=== PATIENT | female | born 1975 | race Caucasian/White ===

== ENCOUNTER 2019-09-29 09:32 | Emergency (ER) | payer BC ==
[2019-09-29 10:54] VITALS: BP 139/71
--- NOTE | 2019-09-29 12:29 | UC ---
Hand/Wrist HPI - HPI Summary HPI Summary: Pt presents with c/o right thumb and wrist pain s/p slipping while moving a desk and falling from standing height and landing on bent knee and hyper extending right thumb. Pt reports sudden onset of pain after hearing "pop" when hyper extending thumb. Pt has not applie dice or taken and pain management medications. - History Of Current Complaint Chief Complaint: UCUpperExtremity Stated Complaint: RIGHT WRIST INJURY Time Seen by Provider: 09/29/19 11:35 Hx Obtained From: Patient Hx Last Menstrual Period: n/a - hysterectomy ?: No Onset/Duration: Sudden Onset, Still Present Severity Initially: Moderate Severity Currently: Moderate Pain Intensity: 6 Pain Scale Used: 0-10 Numeric Character Of Pain: Dull, Aching, Stiffness Aggravating Factor(s): Movement Alleviating Factor(s): Rest Associated Signs And Symptoms: Positive: Swelling Related History: Dominant Hand Right - Risk Factors Compartment Syndrome Risk Factors: Pain - Allergies/Home Medications Allergies/Adverse Reactions: Allergies Allergy/AdvReac Type Severity Reaction Status Date / Time No Known Allergies Allergy Verified 09/29/19 10:45 Home Medications: Home Medications ALPRAZolam [Alprazolam ER] 0.5 - 1 tab PO BEDTIME PRN 09/29/19 [History Confirmed 09/29/19] Acetaminophen [Tylenol] 1 tab PO ONCE 09/29/19 [History Confirmed 09/29/19] Citalopram TAB* [Celexa TAB*] 1 tab PO QPM 09/29/19 [History Confirmed 09/29/19] EPINEPHrine [Epipen] 1 dose INJ ONCE 09/29/19 [History Confirmed 09/29/19] hydrOXYzine HCL TAB* [Atarax TAB 50 MG *] 1 tab PO ONCE PRN 09/29/19 [History Confirmed 09/29/19] PMH/Surg Hx/FS Hx/Imm Hx Previously Healthy: Yes - Surgical History Surgical History: Yes Surgery Procedure, Year, and Place: Hysterectomy with bladder repair due to nicked bladder during hysterectomy, ; Bilateral Carpal Tunnel, 1999; Cholecystectomy, ; Appendectomy, . Gastirc bypass 2018 - Family History Known Family History: Positive: Cardiac Disease - Social History Occupation: Employed Full-time Lives: With Family Alcohol Use: None Substance Use Type: None Smoking Status (MU): Never Smoked Tobacco Have You Smoked in the Last Year: No - Immunization History Most Recent Influenza Vaccination: July 2017 Vaccination Up to Date: Yes Review of Systems All Other Systems Reviewed And Are Negative: Yes Constitutional: Positive: Negative Skin: Positive: Negative Eyes: Positive: Negative ENT: Positive: Negative Respiratory: Positive: Negative Cardiovascular: Positive: Negative Gastrointestinal: Positive: Negative Genitourinary: Positive: Negative Motor: Positive: Decreased ROM - c/o pain with ROM of right thumb Neurovascular: Positive: Negative Musculoskeletal: Positive: Arthralgia, Decreased ROM, Edema, Myalgia Neurological: Positive: Negative Psychological: Positive: Negative Is Patient Immunocompromised?: No Physical Exam Triage Information Reviewed: Yes Appearance: Pain Distress - with palpation and rom Vital Signs: Initial Vital Signs Temp 97.1 F 09/29/19 10:49 Pulse 53 09/29/19 10:49 Resp 16 09/29/19 10:49 BP 139/71 09/29/19 10:49 Pulse Ox 98 09/29/19 10:49 Vital Signs Reviewed: Yes Eye Exam: Normal ENT Exam: Normal ENT: Positive: Hearing grossly normal Neck exam: Normal Respiratory Exam: Normal Respiratory: Positive: No respiratory distress Musculoskeletal Exam: Normal Musculoskeletal: Positive: ROM Intact - c/o pain with rom. Neurological Exam: Normal Psychological Exam: Normal Skin Exam: Normal Diagnostics - Radiology No standard instances Radiology Interpretation Completed By: Radiologist - right wrist: negative for fracture Director Telehealth: Maryann Young S ([id number]) Material Dispatcher: STEFANO (STEFANO) Report Date: 09/29/2019 11:40:00 Report Status: Final === Start of Report Content Patient Name: JOHN WALKER Medical Record#: [id number] Ordering Physician: Rajendra Nash MD Acct.#: [id number] : 06/1975 Age: 44 Sex: F Location: [facility] Exam Date: 09/29/19 1057 ADM Status: REG ER Order Information: WRIST RIGHT 3+ VWS Accession Number: [id number] CPT: 71228 Indication: Right wrist pain 3 views of the wrist demonstrates no fracture. Erosive changes are noted in the radial ulnar joint with osteophyte formation. No fracture. IMPRESSION: Deformity of the distal radius and ulna without definite fracture. <Electronically signed by Maryann Young MD in OV> 113 Dictated By: Maryann Young MD Dictated Date/Time: 09/29/191134 Transcribed Date/Time: 09/29/191134 Copy to: CC:Carlos Galvin MD; Rajendra Nash MD Imaging - [facility] [place] [facility] [address] [place] [address] ph [phone]) ph ) ph ([phone]) End of Report Content right thumb : negative for fracture Hand/Wrist Course/Dx - Differential Dx/Diagnosis Differential Diagnosis/HQI/PQRI: Fracture, Sprain, Strain Provider Diagnosis: Right wrist sprain, Strain of right thumb Discharge ED - Sign-Out/Discharge Documenting (check all that apply): Patient Departure All imaging exams completed and their final reports reviewed: Yes - Discharge Plan Condition: Stable Disposition: HOME Patient Education Materials: Finger Sprain (ED), Ice Pack Application (ED), Wrist Sprain (ED), Safe Use of NSAIDs (ED) Referrals: Carlos Galvin MD [Primary Care Provider] - If Needed Petar Acosta MD [Medical Doctor] - If Needed - Billing Disposition and Condition Condition: STABLE Disposition: Home
== END 2019-09-29 11:53 | disposition home or self-care (01) ==
LOC: UCCORT 09:32
DX: S63.501A Unspecified sprain of right wrist, initial encounter (principal); S66.811A Strain of other specified muscles, fascia and tendons at wrist and hand level, right hand, initial encounter; W18.30XA Fall on same level, unspecified, initial encounter; X50.0XXA Overexertion from strenuous movement or load, initial encounter; Y93.89 Activity, other specified; Y92.9 Unspecified place or not applicable
CPT/HCPCS: 99212; G0463